=== PATIENT | female | born 1955 | race Caucasian/White ===

== ENCOUNTER 2023-11-14 19:01 | Emergency (ER) | payer MEDICARE, OTHER | END 2023-11-14 21:04 | disposition home or self-care (01) | LOC: ERS 19:01 | DX: S30.0XXA Contusion of lower back and pelvis, initial encounter (principal); W19.XXXA Unspecified fall, initial encounter | CPT/HCPCS: 72170; 99283 ==

== ENCOUNTER 2024-01-06 08:41 | Outpatient (CLI) | payer MEDICARE | END 2024-01-06 08:42 | disposition home or self-care (01) | LOC: BICMAMMO 08:41 | PROVIDERS: ATTEND Internal Medicine | DX: Z08 Encounter for follow-up examination after completed treatment for malignant neoplasm (principal); Z85.3 Personal history of malignant neoplasm of breast | CPT/HCPCS: 77066; G0279 ==

== ENCOUNTER 2024-02-12 13:34 | Outpatient (CLI) | payer MEDICARE | END 2024-02-12 13:35 | disposition home or self-care (01) | LOC: CT 13:34 | PROVIDERS: ATTEND Nurse Practitioner Family | DX: M84.48XG Pathological fracture, other site, subsequent encounter for fracture with delayed healing (principal); M85.88 Other specified disorders of bone density and structure, other site; S32.10XA Unspecified fracture of sacrum, initial encounter for closed fracture | CPT/HCPCS: 72192 ==